=== PATIENT | male | born 2000 | race Two or more races ===

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

== ENCOUNTER 2023-10-17 22:53 | Emergency (ER) | payer OTHER ==
[~2023-10-17] VITALS: Ht 170.2 cm; Wt 61.2 kg
[2023-10-18 00:15] VITALS: BP 134/71; TEMP 98; O2SAT 97
[2023-10-18] MEDS ORDERED: KETOROLAC TROMETHAMINE INJ 30 MG/ML VIAL ONE (00:51)
[2023-10-18] MEDS: KETOROLAC TROMETHAMINE INJ 60 MG/2 ML VIAL IM ONE (00:57)
== END 2023-10-18 02:40 | disposition left against medical advice (07) ==
LOC: ER 22:57
DX: M54.50 Low back pain, unspecified (principal)
CPT/HCPCS: 99285; 72131; 96372; 80307; J1885

== ENCOUNTER 2023-10-22 15:25 | Emergency (ER) | payer OTHER ==
[~2023-10-22] VITALS: Ht 170.2 cm; Wt 61.2 kg
[2023-10-22] MEDS ORDERED: KETOROLAC TROMETHAMINE INJ 30 MG/ML VIAL ONE (16:31)
[2023-10-22] MEDS ORDERED: GABAPENTIN 300 MG CAPSULE ONE (16:31)
[2023-10-22] MEDS: GABAPENTIN 100 MG CAPSULE PO ONE (16:32)
[2023-10-22] MEDS: KETOROLAC TROMETHAMINE INJ 60 MG/2 ML VIAL IM ONE (16:33)
[2023-10-22 16:43] VITALS: BP 117/63; TEMP 97.6; O2SAT 100
[2023-10-22 17:46] LABS: APPEARANCE,URINE CLOUDY (CLEAR); BILIRUBIN,URINE NEGATIVE (NEGATIVE); BLOOD, URINE NEGATIVE Ery/uL (NEGATIVE); COLOR,URINE YELLOW (YELLOW); KETONES,URINE NEGATIVE (NEGATIVE); LEUKOCYTE ESTERASE ,URINE NEGATIVE (NEGATIVE); NITRITE, URINE NEGATIVE (NEGATIVE); PROTEIN,URINE TRACE mg/dl (NEGATIVE); UGLUCOSE NEGATIVE (NEGATIVE); UROBILINOGEN,URINE 0.2 EU/dL (0.2)
[2023-10-22] MEDS ORDERED: MORPHINE SULFATE INJ 4 MG/ML DISP.SYRIN ONE (17:50)
[2023-10-22] MEDS: ONDANSETRON 4 MG TAB.RAPDIS PO ONE (17:51)
[2023-10-22] MEDS ORDERED: ONDANSETRON 4 MG TAB.RAPDIS ONE (17:51)
[2023-10-22] MEDS: MORPHINE SULFATE INJ 2 MG/ML DISP.SYRIN IM ONE (17:52)
[2023-10-22] MEDS ORDERED: TRAM50TA2 PO (17:57)
[2023-10-22 18:17] LABS: ADD URINE CULTURE NO; BACTERIA,URINE None seen /HPF (None Seen); MUCUS,URINE Few /LPF (None Seen); RBC,URINE NONE SEEN /HPF (0-2); SQUAMOUS EPITHELIAL CELL,UR None Seen /HPF (None Seen); WBC,URINE NONE SEEN /HPF (0-3)
[2023-10-22 19:05] LABS: AMPHETAMINE, URINE NEGATIVE (NEGATIVE); BARBITURATE, URINE NEGATIVE (NEGATIVE); BENZODIAZEPINE, URINE NEGATIVE (NEGATIVE); CANNABINOID, URINE NEGATIVE (NEGATIVE); COCCAINE, URINE NEGATIVE (NEGATIVE); OPIATE, URINE NEGATIVE (NEGATIVE); PHENCYCLIDINE SCREEN,URINE NEGATIVE (NEGATIVE)
== END 2023-10-22 18:14 | disposition home or self-care (01) ==
LOC: ER 15:25
DX: M54.16 Radiculopathy, lumbar region (principal)
CPT/HCPCS: 99285; 72131; 96372 ×2; 80307; 81001; J2270; J1885; Q0162